=== PATIENT | female | born 1975 | race Caucasian/White ===

== ENCOUNTER 2019-07-08 17:24 | Emergency (ER) | payer OTHER ==
[2019-07-08 17:30] VITALS: BP 125/61; PULSE 69; TEMP 98; BMI 31.0
--- NOTE | 2019-07-08 17:32 | PDOC ---
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. It was a pleasure taking care of you. You may take Motrin 600 mg every 4 hours by mouth as needed for mild to moderate pain. Take Motrin with food. Take Robaxin as needed for muscle spasms. This medication can also make you drowsy so please be cautious with driving or performing heavy physical work. Apply heating pad/warm compresses Epsom salt baths may also help Return to the Emergency Department if your symptoms worsen or persist, you have fever, shortness of breath, chest pain, severe abdominal pain, vomiting, weakness of extremities, unable to control bowel or bladder movements or other concerning symptoms. - Post Discharge Activity
[2019-07-08] MEDS ORDERED: METHOCARBAMOL 750 MG TABLET PO ONE (17:48)
[2019-07-08] MEDS ORDERED: IBUPROFEN 400 MG TABLET (FP) PO ONE ×2 (17:48→17:54)
[2019-07-08] MEDS ORDERED: METHOCARBAMOL 500 MG TABLET ONE (17:55)
--- NOTE | 2019-07-08 17:57 | PDOC ---
History of Present Illness - General Chief Complaint: Pain Stated Complaint: PAIN Time Seen by Provider: 07/08/19 17:30 History Source: Patient Exam Limitations: No Limitations Past History - Past Medical History Allergies/Adverse Reactions: Allergies Allergy/AdvReac Type Severity Reaction Status Date / Time No Known Allergies Allergy Verified 07/08/19 17:26 Home Medications: Ambulatory Orders Methocarbamol [Robaxin -] 1,500 mg PO QID PRN #24 tablet 07/08/19 COPD: No - Psycho Social/Smoking Cessation Hx Smoking History: Never smoked Hx Alcohol Use: No Drug/Substance Use Hx: No Substance Use Type: None *Physical Exam - Vital Signs Last Vital Signs Temp Pulse Resp BP Pulse Ox 98 F 69 18 125/61 98 07/08/19 17:28 07/08/19 17:28 07/08/19 17:28 07/08/19 17:28 07/08/19 17:28 - Physical Exam General Appearance: No: Apparent Distress Gastrointestinal/Abdominal: positive: Normal Bowel Sounds, Soft. negative: Tender, Distended, Guarding, Rebound Musculoskeletal: positive: Muscle Spasm (+L lumbar paraspinal muscle tenderness) . negative: Vertebral Tenderness Integumentary: negative: Swelling, Ecchymosis, Bruising Neurologic: positive: Alert, Normal Mood/Affect, Motor Strength 5/5, Other ( normal gait) Medical Decision Making - Medical Decision Making 43 y/o F with no sig pmh presents with nonradiating lower back pain (more along left side) x 2 days. Pain is worse with movement of spine. Has tried Tylenol and Motrin with temporary relief of pain. 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 States she woke up with pain. Denies fever, sob, cp, abd pain, n/v, urinary symptoms, bowel/bladder incontinence, saddle/groin paresthesia. Denies prior back issues. Back muscle spasm Plan: motrin, robaxin 07/08/19 17:53 Discharge - Discharge Information Problems reviewed: Yes Clinical Impression/Diagnosis: Spasm of muscle of lower back Condition: Stable Disposition: HOME - Admission No - Additional Discharge Information Prescriptions: Methocarbamol [Robaxin -] 1,500 mg PO QID PRN #24 tablet PRN Reason: Muscle Spasms Prescription Drug Monitoring Program (I-STOP) results: I-STOP not reviewed - Follow up/Referral Referrals: Torres Oreilly [Primary Care Provider] - 2 Days - Patient Discharge Instructions Patient Printed Discharge Instructions: DI for Back Spasm Additional Instructions: Thank you for choosing [facility]. It was a pleasure taking care of you. You may take Motrin 600 mg every 4 hours by mouth as needed for mild to moderate pain. Take Motrin with food. Take Robaxin as needed for muscle spasms. This medication can also make you drowsy so please be cautious with driving or performing heavy physical work. Apply heating pad/warm compresses Epsom salt baths may also help Return to the Emergency Department if your symptoms worsen or persist, you have fever, shortness of breath, chest pain, severe abdominal pain, vomiting, weakness of extremities, unable to control bowel or bladder movements or other concerning symptoms. - Post Discharge Activity
== END 2019-07-08 18:00 | disposition home or self-care (01) ==
LOC: JERFT 17:24
DX: M62.830 Muscle spasm of back (principal)
CPT/HCPCS: 99281-25

== ENCOUNTER 2021-08-15 16:18 | Emergency (ER) | payer OTHER ==
[2021-08-15 16:33] VITALS: TEMP 97.3; BMI 36.9
[2021-08-15] MEDS ORDERED: FAMOTIDINE 20 MG TABLET PO ONE (17:50)
[2021-08-15] MEDS ORDERED: MAG HYDROX/AL HYDROX/SIMETH -MYLANTA- ORAL SUSPENSION PO ONE (17:50)
[2021-08-15] MEDS ORDERED: FAMOTIDINE 20 MG TABLET ONE (17:56)
[2021-08-15] MEDS ORDERED: MAG HYDROX/AL HYDROX/SIMETH 30 ML UNIT-DOSE CUP ONE (17:56)
[2021-08-15 18:49] LABS: HEMATOCRIT 41.3 % (32.4-45.2); HEMOGLOBIN 13.8 GM/dL (10.7-15.3); MCH 29.5 pg (25.7-33.7); MCHC 33.4 g/dl (32.0-36.0); MEAN CELL VOLUME 88.3 fl (80-96); MEAN PLT VOLUME 9.1 fl (7.5-11.1); PLATELET COUNT 339 10^3/uL (134-434); RBC 4.68 M/mm3 (3.60-5.2); WHITE BLOOD COUNT 11.8 K/mm3 (4.0-10.0)
[2021-08-15 19:11] LABS: CHLORIDE 105 mmol/L (98-107); SODIUM 138 mmol/L (136-145)
[2021-08-15 19:15] LABS: ALBUMIN 3.6 g/dl (3.4-5.0); ANION GAP 7 MMOL/L (8-16); BLOOD UREA NITROGEN 17.1 mg/dL (7-18); CO2 26 mmol/L (21-32); GLUCOSE,RANDOM 86 mg/dL (74-106)
[2021-08-15 19:18] LABS: CREATININE 0.9 mg/dL (0.55-1.3); SGOT/AST 35 U/L (15-37); SGPT/ALT 36 U/L (13-61)
[2021-08-15 19:20] LABS: BILIRUBIN,TOTAL 0.6 mg/dL (0.2-1); TOT PROT 8.6 g/dl (6.4-8.2)
[2021-08-15 19:21] LABS: ALK PHOS 94 U/L (45-117)
[2021-08-15 20:18] VITALS: BP 122/71; PULSE 62
== END 2021-08-15 20:18 | disposition home or self-care (01) ==
LOC: JER 16:18
DX: K21.9 Gastro-esophageal reflux disease without esophagitis (principal)
CPT/HCPCS: 36415; 71046-TC-FY; 80053; 82550; 84484; 85027; 93005; 93010; 99285-25